=== PATIENT | male | born 1975 | race African-American/Black ===

== ENCOUNTER 2019-09-20 10:36 | Emergency (ER) | payer MEDICAID ==
[~2019-09-20] VITALS: Ht 188 cm; Wt 129.3 kg
[~2019-09-20 10:36] MED LIST: AMLODIPINE BESY10 MG PO; HYDROCHLOROTH12.5 M1 PO; LISINOPRIL10 MG PO; RISPERDAL2 MG PO; SERTRALINE HCL50 MG PO; VISTARIL 25 MG25 M1 PO
[2019-09-20] MEDS ORDERED: NABUMETONE 750750 M1 PO (11:16)
[2019-09-20 11:46] VITALS: BP 168/100
== END 2019-09-20 11:50 | disposition home or self-care (01) ==
LOC: M.ERS 10:36
DX: S63.591A Other specified sprain of right wrist, initial encounter (principal); I10 Essential (primary) hypertension; F17.210 Nicotine dependence, cigarettes, uncomplicated; W01.0XXA Fall on same level from slipping, tripping and stumbling without subsequent striking against object, initial encounter; Y93.89 Activity, other specified; Y92.89 Other specified places as the place of occurrence of the external cause; Y99.8 Other external cause status